=== PATIENT | male | born 1940 | race Caucasian/White ===

== ENCOUNTER 2016-12-27 19:23 | Emergency (ER) | payer OTHER ==
[~2016-12-27] VITALS: Ht 170.2 cm; Wt 72.6 kg
--- NOTE | ~2016-12-27 | EKG ---
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 : 1940 Requested By: Mely Stovall Order Number: [id number] MD: Heber Welch Measurements Intervals Posey Rate: 78 P: 56 UT: 134 QRS: -15 QRSD: 99 T: 19 QT: 391 QTc: 446 Interpretive Statements Sinus rhythm Ventricular premature complex Probable left atrial enlargement Borderline left axis deviation Compared to ECG 01/04/2007 07:04:07 No significant changes Electronically Signed On 12-28-2016 14:04:02 CDT by Heber Welch [email or web address] <ELECTRONICALLY SIGNED> By: Heber Welch MD, [facility] 12/28/16 1404 55 55 Heber Welch MD, FACC /EPI
[2016-12-27] MEDS ORDERED: PRILOSEC 20 MG20 MG PO (19:30)
[2016-12-27 20:22] LABS: HEMATOCRIT 43.4 % (42.0-52.0); HEMOGLOBIN 15.3 gm/dL (14.0-18.0); MCH 32.7 pg (26.0-34.0); MCHC 35.2 g/dL (28.0-37.0); MCV 92.9 fL (80.0-100.0); PLATELET COUNT 126 thou/uL (150-400); RBC 4.68 mil/uL (4.50-6.00); RDW 13.2 % (10.5-14.5); WBC 3.3 thou/uL (4.0-11.0)
[2016-12-27 20:24] LABS: URINE BILIRUBIN NEGATIVE (Negative); URINE BLOOD NEGATIVE (Negative); URINE COLOR YELLOW; URINE GLUCOSE-RANDOM* NEGATIVE (Negative); URINE KETONES 1+ (Negative); URINE NITRITE NEGATIVE (Negative); URINE PROTEIN (DIPSTICK) NEGATIVE (Negative); URINE UROBILINOGEN 0.2 E.U./dl (0.2-1.0)
[2016-12-27 20:27] LABS: MANUAL DIFF YES
[2016-12-27 20:31] LABS: ANION GAP 6 mmol/L (7-16); BUN 12 mg/dL (7-18); CHLORIDE 104 mmol/L (98-107); CO2 28 mmol/L (21-32); CREATININE 0.8 mg/dL (0.7-1.3); GLUCOSE 90 mg/dL (74-106); POTASSIUM 3.7 mmol/L (3.5-5.1); SODIUM 138 mmol/L (136-145)
[2016-12-27 20:42] LABS: ALBUMIN 3.2 g/dL (3.4-5.0); ALKALINE PHOSPHATASE 76 U/L (46-116); NT-PRO BRAIN NAT PEPTIDE 64 pg/mL (<300); SGOT 37 U/L (15-37); SGPT 55 U/L (30-65); TOTAL BILIRUBIN 0.5 mg/dL (<0.1-1.0); TOTAL PROTEIN 6.6 g/dL (6.4-8.2); TROPONIN-I < 0.04 ng/mL (<0.04-0.07)
[2016-12-27 21:04] LABS: TOTAL CELL COUNT 100
[2016-12-27 21:33] VITALS: BP 129/63
[2016-12-27] MEDS ORDERED: CEFDINIR300 MG PO (21:36)
[2016-12-27] MEDS ORDERED: MOBIC7.5 MG PO (21:36)
== END 2016-12-27 21:46 | disposition home or self-care (01) ==
LOC: ER 19:23
PROVIDERS: Nurse Practitioner Family
DX: D72.825 Bandemia (principal); E83.51 Hypocalcemia; D72.819 Decreased white blood cell count, unspecified; Z85.828 Personal history of other malignant neoplasm of skin; Z90.89 Acquired absence of other organs

== ENCOUNTER 2019-05-17 12:01 | Observation (INO) | payer OTHER ==
[~2019-05-17] VITALS: Ht 170.2 cm; Wt 74.4 kg
--- NOTE | ~2019-05-17 | O ---
[facility] [address] [place] [address] OPERATIVE REPORT Name: JANELL FERRELL Room #: 464-P [facility] Gene#: [id number] Admission: 05/17/19 Attend Phys: Kishore Craig MD Discharge: 05/18/19 Date of : 38 Report #: [id number] THIS REPORT FOR: //name// CC: Buddy Craig PREOPERATIVE DIAGNOSES: 1. Large left incarcerated inguinal hernia. 2. Right inguinal hernia. POSTOPERATIVE DIAGNOSES: Incarcerated left indirect inguinal hernia, right inguinal hernia. PROCEDURES PERFORMED: Bilateral inguinal hernia repair with mesh. SURGEON: Kishore Craig MD ANESTHESIA: General anesthesia. COMPLICATIONS: None. BLOOD LOSS: 5 mL. PROCEDURE NOTE: With the patient under general anesthesia, Jiang catheter was placed. IV antibiotic was administered. Timeout was performed. Abdomen was prepped and draped in sterile fashion. A 0.25% Marcaine was used to anesthetize the skin adjacent to the umbilicus on the right side. A transverse incision was made. This is about 2 cm in length. The anterior fascia was identified. This was incised transversely. Muscle was spread vertically. Posterior sheath was then palpated. The space between the muscle and the posterior sheath was bluntly dissected inferiorly. A balloon trocar was then placed in the space. CO2 was placed. A 5 mm trocar was placed about 2 inches below the umbilicus at the midline. Cautery and blunt dissection was carried out freeing the properitoneal space up. During the dissection, there is some air that went into the intra-abdominal cavity, but the properitoneal space was able to maintain pretty well. A second 5 mm trocar was placed in the right lateral abdomen after this area was opened. Dissection was then carried out on the left side. The patient had a large left indirect hernia sac and this is moderately scarred at the level of the internal ring, but I was able to pull the hernia sac out of the canal and actually probably even out of the scrotum. After the patient was asleep, I was able to reduce the hernia with the muscles relaxed. Suspect sigmoid colon was in the hernia sac. The hernia sac was reduced off the cord structure and then back in the properitoneal space. A large hernia sac was freed up on the left side. On the right side, there is also indirect hernia sac. The peritoneum was quite thin in this area and the peritoneum was opened. CO2 went into the abdominal cavity. A 5 mm trocar was placed in left upper [facility] [address] [place] [address] OPERATIVE REPORT Name: JANELL FERRELL Room #: 464-P [facility]..#: [id number] Admission: 05/17/19 Attend Phys: Kishore Craig MD Discharge: 05/18/19 Date of : 38 Report #: [id number] quadrant to allow the camera to visualize the intra-abdominal organ and the small bowel was identified in the left lower quadrant and then a bruised fatty tissue, which looks like it is adjacent to the sigmoid colon, was identified. There is no necrosis identified. However, I only had the one 5 mm trocar to visualize with and did not try to manipulate that. With the air now evacuated from the abdominal cavity through evacuator, properitoneal space was then allowed to stay open. There is a lipoma on the right side, identified in the cord. This was reduced also. 3DMax large sized left-sided mesh was then placed through the balloon trocar and then opened the properitoneal space. This was seated, tacked with SorbaFix superolaterally to the wall and then inferomedially to the Bebeto ligament and then superomedially to the rectus muscle. Right-sided mesh was also placed, opened up and seated with the SorbaFix. Both sides were fixed without difficulty. The CO2 was then evacuated from the intra-abdominal space and also from the properitoneal space. The fascia defect adjacent to the umbilicus was closed with [id number] 0 Vicryl. The skin was irrigated, closed with 5-0 PDS. Steri-Strip, Band-Aids applied. The patient was taken to recovery room having tolerated the procedure well. Jiang catheter was removed. The patient will be discharged 3 hours from now. By: [id number] Kishore Craig MD /nt
[~2019-05-17 12:01] MED LIST: CEFDINIR300 MG PO; MOBIC7.5 MG PO; PRILOSEC 20 MG20 MG PO
[2019-05-17 13:54] LABS: HEMATOCRIT 49.1 % (42.0-52.0); HEMOGLOBIN 16.5 gm/dL (14.0-18.0); MCH 33.1 pg (26.0-34.0); MCHC 33.6 g/dL (28.0-37.0); MCV 98.5 fL (80.0-100.0); RBC 4.99 mil/uL (4.50-6.00); RDW 13.6 % (10.5-14.5); WBC 7.9 thou/uL (4.0-11.0)
[2019-05-17 14:06] LABS: CALCIUM 9.5 mg/dL (8.5-10.1); CREATININE 0.9 mg/dL (0.7-1.3); POTASSIUM 4.8 mmol/L (3.5-5.1); TOTAL PROTEIN 7.6 g/dL (6.4-8.2)
[2019-05-17 17:01] VITALS: BP 126/72
--- NOTE | 2019-05-17 17:30 | H ---
[facility] [address] [place] [address] HISTORY AND PHYSICAL Name: JANELL FERRELL Room #: 464-P ADM IN M.R.#: [id number] Admission: 05/17/19 Attend Phys: Kishore Craig MD Discharge: Date of : 38 Report #: [id number] THIS REPORT FOR: //name// CC: Buddy Craig DATE OF SERVICE: 05/17/2019 PREOPERATIVE DIAGNOSES: Incarcerated left inguinal hernia, right inguinal hernia. HISTORY OF PRESENT ILLNESS: The patient is an 79-year-old who was seen in the office on 05/12/2019. The patient had a fairly large hernia. The patient has had this for about a year and a half to 2 years. The patient now is complaining of increasing burning discomfort particularly with urination and also wakes him up at night, feels the need to go to urinate. No issue with standing or sitting. 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 Not much lifting lately. The patient does play tennis about 2-3 times a week. No issue with that. Has a history of prior diverticulitis. The patient does have environmental allergy issue and does have cough and sneezing periodically. The patient gets up and urinates now about 2-3 times a night. In the past, he was getting up once at night. The patient's bowels are working well, but he does take Metamucil each night. The patient was examined, found to have large left inguinal hernia extending into the top half of the scrotum. He has a small right-sided hernia. I was able to reduce it last week. The patient called that his hernia was out more and he was working today. I did try to reduce his hernia, but I got a look some of the back but I was not able to reduce the last amount that was still stuck. He has noticed the hernia pushing out more than in the past. For the last couple of days, he has got discomfort, but no severe pains. No nausea or vomiting. Because I could not get the hernia back in, I think the best thing is to go ahead, proceed with surgery today for incarcerated left inguinal hernia. He has not eaten anything or drank anything today. He is added to the OR schedule. PAST MEDICAL HISTORY: No heart disease, no diabetes, no high blood pressure, no lung disease, no kidney disease, no liver disease, no bleeding disease, no history of blood clot. PAST SURGICAL HISTORY: The patient had a pilonidal cyst 1971, had an appendectomy in . ALLERGIES: Does not have any allergies to medication. MEDICATION: He is not on any medication. [address] [address] HISTORY AND PHYSICAL Name: JANELL FERRELL Darya Room #: 464-P [facility] IN M.R.#: [id number] Admission: 05/17/19 Attend Phys: Kishore Craig MD Discharge: Date of : 38 Report #: [id number] FAMILY HISTORY: Father had heart disease. 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 Does not smoke. Rarely drinks. REVIEW OF SYSTEMS: He has hearing aids, also reading glasses. No numbness, weakness. No chest pain, shortness of breath. PHYSICAL EXAMINATION: GENERAL: The patient is an elderly male. He is not in acute distress. HEENT: Pupils react to light. Extraocular muscles are intact. NECK: Soft and supple. LUNGS: Clear to auscultation. HEART: Regular rate and rhythm. No murmur or gallop. ABDOMEN: Soft and nondistended. The patient does have a large left inguinal hernia. I do think it is out more than it was last week. With the patient in supine position, I was able to reduce partly but could not get the rest of back in. There is no redness. Mild tenderness when I tried to reduce and not significant tenderness. Right side does show a small hernia. EXTREMITIES: No cyanosis, clubbing, edema. IMPRESSION: The patient is an 79-year-old with a large left inguinal hernia and a couple of days, he has had the hernia push out more. Some discomfort, but no severe pains. No nausea or vomiting. On exam, I think his sigmoid colon is inside the hernia. I was not able to reduce it completely. I think the incarceration is likely more chronic than acute. But I was able to reduce it last week when I saw him. RECOMMENDATION: I recommend that the patient come in the hospital because of the incarcerated hernia and undergo surgery. He is not eaten anything, drink anything today. He is being added to the OR schedule. I am not quite sure what time this will be if the OR was not available until real late then I would probably go ahead and do him tomorrow morning. This was discussed with the patient. I also discussed this with his daughter over the phone. The patient understands the nature of the operation and I think with the bilateral hernia he still would benefit from bilateral hernia repair with mesh. Use of mesh was discussed. Risk of bleeding, infection, mesh infection was discussed. I think the hernia ought to reduce when he goes to sleep. He does have a fairly large sac. The patient understands this. We will keep him n.p.o. <ELECTRONICALLY SIGNED> By: Kishore Craig MD 05/17/19 1730 1204 [id number] Kishore Craig MD /nt
--- NOTE | 2019-05-17 18:44 | NUR ---
ASSUMED CARE AT 1300, SHIFT ASSESSMENT DONE, VSS. NPO FOR POSSIBLE SURGERY TODAY, BUT DR CORTES INFORMED SURGERY WILL NOT BE DONE TODAY. SO PT STARTED ON CLEAR LIQUID DIET. WILL BE NPO AFTER MIDNIGHT. WILL CONTINUE TO ASSESS AND ASSIST WITH ADLs NEEDED.
[2019-05-17 19:45] VITALS: BP 136/66
--- NOTE | 2019-05-18 03:16 | NUR ---
ASSUMED CARE OF PT AT 1900HRS. PT AOX4 AND LETS NEEEDS BE KNOWN. FALL PRECAUTION IN PLACE. PT PLACED NPO AT MO FOR PROCEDURE IN THE AM. CONSENT WAS SIGNED. VSS AND NO S/S OF ACUTE DISTRESS. PT WAS ABLE TO SLEEP PART OF THE SHIFT. WILL CONTINUE TO MONITOR.
[2019-05-18] MEDS ORDERED: LORCET 5-325 M1 EACH PO (09:57)
[2019-05-18 10:44] VITALS: BP 146/80
[2019-05-18 11:00] VITALS: BP 144/60
[2019-05-18 11:26] VITALS: BP 126/80
[2019-05-18 12:00] VITALS: BP 126/80
[2019-05-18 12:05] VITALS: BP 146/74
--- NOTE | 2019-05-18 12:15 | NUR ---
PT A&OX4, VSS, DENIES PAIN. PATIENT BACK ON FLOOR FROM SURGERY APPROX. 1050. PATIENT UP TO BATHROOM AND URINATED. PT DENIES SOA, NO SIGNS OF DISTRESS. PATIENT HAS 3 LAP SITES, C/D/I. WILL CONTINUE TO MONITOR.
[2019-05-18 12:23] VITALS: BP 126/80
--- NOTE | 2019-05-18 15:14 | NUR ---
PT ADMITTED RELATED TO PAIN AND BULGING. CM REVIEWED CHART AND SPOKW WITH CARE TEAM. CM MET WITH PT AT BEDSIDE THIS DAY. PT IS A&O X4. CM ROLE INTRODUCED. PT INDICATED HE LIVES IN A HOUSE WITH HIS , 2 DOGS, AND 2 CATS. PT INDICATED THERE ARE 2 STEPS TO ENTER AND 12 STEPS TO SECOND STORY BED AND BATHROOM. 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 PT INDICATED NO DME OR HH HX. PT UNTERWENT BL HERNIA REPAIR. CARE TEAM AND PT ANTICIPATE DC HOME THIS DAY WITH NO NEEDS. CM ABLE TO ASSIST SHOULD ANY DC NEEDS ARISE.
== END 2019-05-18 13:47 | disposition home or self-care (01) ==
LOC: OR 12:01 → 4W 12:05 → OR 05-18 11:56 → 4W 05-18 13:47 → OR 05-19 16:22
PROVIDERS: ADMIT Surgery
DX: K40.20 Bilateral inguinal hernia, without obstruction or gangrene, not specified as recurrent (principal); Z87.891 Personal history of nicotine dependence
CPT/HCPCS: 10047; 50010; 50101; 50249; 50411; 50455; 50507; 50555; 50848; 53065; 53307; 56525; 56526; 56719; 62110; 62900; 65131; 70005

== ENCOUNTER → 2020-10-08 | Outpatient (CLI) | payer OTHER ==
[~2020-10-08] MED LIST changes: +LORCET 5-325 M1 EACH PO
[2020-10-08 10:06] LABS: HEMATOCRIT 46.4 % (42.0-52.0); HEMOGLOBIN 15.8 gm/dL (14.0-18.0); MCH 33.2 pg (26.0-34.0); MCHC 34.1 g/dL (28.0-37.0); MCV 97.5 fL (80.0-100.0); RBC 4.76 mil/uL (4.50-6.00); WBC 9.8 thou/uL (4.0-11.0)
[2020-10-08 10:15] LABS: CALCIUM 8.9 mg/dL (8.5-10.1); CREATININE 1.1 mg/dL (0.7-1.3); POTASSIUM 3.9 mmol/L (3.5-5.1)
== END ==
LOC: CAT 09:31
PROVIDERS: ATTEND Family Medicine
DX: R10.11 Right upper quadrant pain (principal); R10.32 Left lower quadrant pain